=== PATIENT | female | born 1960 | race African-American/Black ===

== ENCOUNTER 2022-02-21 17:07 | Emergency (ER) | payer BC ==
[2022-02-21] MEDS ORDERED: METOCLOPRAMIDE 10 MG/2mL INJ ONE (18:15)
[2022-02-21] MEDS ORDERED: DIPHENHYDRAMINE 50 MG/ML VIAL ONE (18:15)
[2022-02-21] MEDS ORDERED: KETOROLAC 30 MG/ML INJ ONE (18:16)
[2022-02-21] MEDS ORDERED: NA CHLORIDE 0.9% 1,000 ML ONE (18:16)
[2022-02-21 19:53] LABS: SARS-COV-2 RT PCR NEGATIVE (NEGATIVE)
--- NOTE | 2022-02-21 21:00 | ER ---
Nurse's Notes [facility] Name: Ann Pruitt Age: 61 yrs Sex: Female : 1960 Arrival Date: 02/21/2022 Time: 17:08 Bed 23 Private MD: Diagnosis: Acute pharyngitis, unspecified Presentation: 02/21 17:40 Chief complaint: Patient states: she has been having body aches, head ache, chills, ap3 sore throat and just "not feeling right" since last night. Patient reports having fever off and on since then, and states the headache is "awful". Coronavirus screen: chills, congestion, cough unrelated to allergies, fatigue, fever, headache, Client presents with at least one sign or symptom that may indicate coronavirus-19. Ebola Screen: No symptoms or risks identified at this time. Initial Sepsis Screen: Does the patient meet any 2 criteria? No. Patient's initial sepsis screen is negative. Does the patient have a suspected source of infection? No. Patient's initial sepsis screen is negative. Risk Assessment: Do you want to hurt yourself or someone else? Patient reports no desire to harm self or others. Onset of symptoms was February 20, 2022. 17:40 Method Of Arrival: Wheelchair ap3 17:40 Acuity: FREDDY 3 ap3 Triage Assessment: 17:43 General: Appears uncomfortable, Behavior is anxious, crying. Pain: Complains of pain in ap3 head, and generalized body aches with jay lower leg pain Pain currently is 7 out of 10 on a pain scale. at worst was 10 out of 10 on a pain scale. Neuro: Level of Consciousness is awake, alert, obeys commands, Oriented to person, place, time, situation, Appropriate for age. Cardiovascular: Patient's skin is warm and dry. Respiratory: Airway is patent Respiratory effort is even, unlabored, Respiratory pattern is regular, symmetrical. Historical: - Allergies: 17:42 No Known Allergies; ap3 - Home Meds: 17:42 None [Active]; ap3 - PMHx: 17:42 Rheumatoid arthritis; disk disease; ap3 - Immunization history:: Client reports receiving the 2nd dose of the Covid vaccine, Flu vaccine is not up to date. - Social history:: Smoking status: Patient reports the use of cigarette tobacco products, denies chronic smoking, but will smoke occasionally. Screenin:44 Abuse screen: Denies threats or abuse. Nutritional screening: No deficits noted. ap3 Tuberculosis screening: No symptoms or risk factors identified. 18:06 Fall Risk No fall in past 12 months (0 pts). No secondary diagnosis (0 pts). IV access vg1 (20 points). Ambulatory Aid- None/Bed Rest/Nurse Assist (0 pts). Gait- Normal/Bed Rest/Wheelchair (0 pts) Mental Status- Oriented to own ability (0 pts). Total Prieto Fall Scale indicates No Risk (0-24 pts). Assessment: 17:50 General: Appears in no apparent distress. uncomfortable, Behavior is calm, cooperative. vg1 Pain: Complains of pain in generalize body Pain currently is 7 out of 10 on a pain scale. Pain began 1 day ago. Neuro: Level of Consciousness is awake, alert, obeys commands, Oriented to person, place, time, situation, Reports headache. Cardiovascular: Patient's skin is warm and dry. Respiratory: Airway is patent Respiratory effort is even, unlabored, Breath sounds are clear bilaterally. GI: No signs and/or symptoms were reported involving the gastrointestinal system. : No signs and/or symptoms were reported regarding the genitourinary system. EENT: No signs and/or symptoms were reported regarding the EENT system. Derm: Skin is intact, is healthy with good turgor. Musculoskeletal: Circulation, motion, and sensation intact. 19:41 Reassessment: Patient appears in no apparent distress at this time. Patient and/or jb4 family updated on plan of care and expected duration. Pain level reassessed. Patient is alert, oriented x 3, equal unlabored respirations, skin warm/dry/pink. 21:14 Reassessment: Patient appears in no apparent distress at this time. Patient and/or jb4 family updated on plan of care and expected duration. Pain level reassessed. Patient is alert, oriented x 3, equal unlabored respirations, skin warm/dry/pink. Vital Signs: 17:40 BP 132 / 77; Pulse 100; Resp 19; Temp 99.1; Pulse Ox 97% ; Weight 70.31 kg; Height 5 ap3 ft. 6 in. (167.64 cm); Pain 7/10; 18:06 BP 136 / 84; Pulse 97; Resp 20; Pulse Ox 98% on R/A; vg1 18:33 BP 118 / 77; Pulse 92; Resp 16; Pulse Ox 100% ; vg1 20:16 BP 154 / 87; Pulse 109; Resp 16; Temp 98.9(TE); Pulse Ox 100% on R/A; jb4 17:40 Body Mass Index 25.02 (70.31 kg, 167.64 cm) ap3 ED Course: 17:08 Patient arrived in ED. as 17:42 Triage completed. ap3 17:44 Arm band placed on right wrist. ap3 17:45 Loretta Ellis, RN is Primary Nurse. vg1 17:46 Fredis Schrader, RIGO is PHCP. pm1 17:46 Arleen Bruno MD is Attending Physician. pm1 18:07 Patient has correct armband on for positive identification. Bed in low position. Call vg1 light in reach. Side rails up X 1. Adult w/ patient. 18:20 Inserted saline lock: 20 gauge in right antecubital area, using aseptic technique. vg1 18:27 COVID swab sent to lab. Flu and/or RSV swab sent to lab. Strep swab sent to lab. vg1 19:03 Report given to Kurt BUITRAGO. vg1 21:14 No provider procedures requiring assistance completed. IV discontinued, intact, jb4 bleeding controlled, No redness/swelling at site. Pressure dressing applied. Administered Medications: 18:20 Drug: NS 0.9% 1000 ml Route: IV; Rate: 1000 ml; Site: right antecubital; vg1 19:30 Follow up: Response: No adverse reaction; IV Status: Completed infusion; IV Intake: jb4 1000ml 18:20 Drug: Ketorolac 30 mg Route: IVP; Site: right antecubital; vg1 19:00 Follow up: Response: No adverse reaction; Marked relief of symptoms; Pain is decreased jb4 18:23 Drug: Benadryl (diphenhydrAMINE) 12.5 mg Route: IVP; Site: right antecubital; vg1 19:00 Follow up: Response: No adverse reaction jb4 18:25 Drug: Reglan (metoCLOPramide) 10 mg Route: IVP; Site: right antecubital; vg1 19:00 Follow up: Response: No adverse reaction; Marked relief of symptoms jb4 Intake: 19:30 IV: 1000ml; Total: 1000ml. jb4 Outcome: 21:00 Discharge ordered by MD. pm1 21:14 Discharged to home ambulatory, with family. jb4 21:14 Condition: stable 21:14 Discharge instructions given to patient, Instructed on discharge instructions, follow up and referral plans. medication usage, Demonstrated understanding of instructions, follow-up care, medications, Prescriptions given X 1. 21:16 Patient left the ED. jb4 Signatures: Karen Amin Patrick, RIGO ENVIRONMENTAL JOURNALIST pm1 Kamaljit Bucio, RN RN jb4 Rachel Smith RN RN ap3 Loretta Ellis, RN RN vg1
--- NOTE | 2022-02-21 21:00 | EDPHYS ---
Physician Documentation [facility] Name: Ann Pruitt Age: 61 yrs Sex: Female : 1960 Arrival Date: 02/21/2022 Time: 17:08 Bed 23 Private MD: ED Physician Arleen Bruno HPI: 02/21 18:06 This 61 yrs old Black Female presents to ER via Wheelchair with complaints of Leg Pain, pm1 Congestion, Headache. 18:06 The patient presents with sore throat, Onset yesterday with headache and nasal pm1 congestion, body aches and leg pain bilaterally. Severity of symptoms: in the emergency department the symptoms are actually worse. Modifying factors: The symptoms are alleviated by nothing, the symptoms are aggravated by nothing, The patient has had contact with sick Grandchildren. Associated signs and symptoms: Pertinent positives: flu-like symptoms, Hoarse voice, Pertinent negatives chest pain, cough, diarrhea, nausea, shortness of breath, vomiting. The patient has not recently seen a physician. Historical: - Allergies: 17:42 No Known Allergies; ap3 - Home Meds: 17:42 None [Active]; ap3 - PMHx: 17:42 Rheumatoid arthritis; disk disease; ap3 - Immunization history:: Client reports receiving the 2nd dose of the Covid vaccine, Flu vaccine is not up to date. - Social history:: Smoking status: Patient reports the use of cigarette tobacco products, denies chronic smoking, but will smoke occasionally. ROS: 18:06 Cardiovascular: Negative for chest pain, palpitations, and edema, Respiratory: Negative pm1 for shortness of breath, cough, wheezing, and pleuritic chest pain, Abdomen/GI: Negative for abdominal pain, nausea, vomiting, diarrhea, and constipation, Back: Negative for injury and pain, MS/Extremity: Negative for injury and deformity, Skin: Negative for injury, rash, and discoloration, Neuro: Negative for headache, weakness, numbness, tingling, and seizure. 18:06 Constitutional: Positive for body aches, Negative for chills, poor PO intake. 18:06 ENT: Positive for sore throat, Negative for ear pain. 18:06 All other systems are negative. Exam: 18:06 Constitutional: This is a well developed, well nourished patient who is awake, alert, pm1 and in no acute distress. Head/Face: Normocephalic, atraumatic. 18:06 Back: No spinal tenderness. No costovertebral tenderness. Full range of motion. Skin: Warm, dry with normal turgor. Normal color with no rashes, no lesions, and no evidence of cellulitis. MS/ Extremity: Pulses equal, no cyanosis. Neurovascular intact. Full, normal range of motion. 18:06 Eyes: Exam is negative for acute changes, Periorbital structures: appear normal, Pupils: no acute changes, Conjunctiva: no acute changes, no injection. 18:06 ENT: External ear(s): are unremarkable, Ear canal(s): are normal, TM's: are normal, Mouth: Lips: normal, moist, Oral mucosa: normal, pink and intact, moist, Posterior pharynx: no acute changes, Airway: no evidence of obstruction, Tonsils: bilaterally enlarged, with erythema, no exudate, no ulcerations, erythema, that is moderate. 18:06 Cardiovascular: Exam negative for acute changes, Rate: normal, Rhythm: regular, Pulses: no pulse deficits are appreciated. 18:06 Respiratory: Exam negative for acute changes, respiratory distress, shortness of breath. 18:06 Neuro: Exam negative for acute changes, Orientation: is normal, Mentation: is normal, Motor: is normal, moves all fours. Vital Signs: 17:40 BP 132 / 77; Pulse 100; Resp 19; Temp 99.1; Pulse Ox 97% ; Weight 70.31 kg; Height 5 ap3 ft. 6 in. (167.64 cm); Pain 7/10; 18:06 BP 136 / 84; Pulse 97; Resp 20; Pulse Ox 98% on R/A; vg1 18:33 BP 118 / 77; Pulse 92; Resp 16; Pulse Ox 100% ; vg1 20:16 BP 154 / 87; Pulse 109; Resp 16; Temp 98.9(TE); Pulse Ox 100% on R/A; jb4 17:40 Body Mass Index 25.02 (70.31 kg, 167.64 cm) ap3 MDM: 17:52 Patient medically screened. pm1 20:57 Data reviewed: vital signs. Data interpreted: Pulse oximetry: on room air is 100 %. pm1 Interpretation: normal. Counseling: I had a detailed discussion with the patient and/or guardian regarding: the historical points, exam findings, and any diagnostic results supporting the discharge/admit diagnosis, the need for outpatient follow up, a family practitioner, to return to the emergency department if symptoms worsen or persist or if there are any questions or concerns that arise at home. 02/21 18:06 Order name: COVID-19/FLU A+B (Document "Date of Onset" if Symptomatic); Complete Time: pm1 20:10 02/21 18:06 Order name: Strep; Complete Time: 19:41 pm1 02/21 19:56 Order name: Throat Culture EDMS 02/21 18:06 Order name: IV Saline Lock; Complete Time: 18:31 pm1 Administered Medications: 18:20 Drug: NS 0.9% 1000 ml Route: IV; Rate: 1000 ml; Site: right antecubital; vg1 19:30 Follow up: Response: No adverse reaction; IV Status: Completed infusion; IV Intake: jb4 1000ml 18:20 Drug: Ketorolac 30 mg Route: IVP; Site: right antecubital; vg1 19:00 Follow up: Response: No adverse reaction; Marked relief of symptoms; Pain is decreased jb4 18:23 Drug: Benadryl (diphenhydrAMINE) 12.5 mg Route: IVP; Site: right antecubital; vg1 19:00 Follow up: Response: No adverse reaction jb4 18:25 Drug: Reglan (metoCLOPramide) 10 mg Route: IVP; Site: right antecubital; vg1 19:00 Follow up: Response: No adverse reaction; Marked relief of symptoms jb4 Disposition Summary: 02/21/22 21:00 Discharge Ordered Location: Home pm1 Problem: new pm1 Symptoms: have improved pm1 Condition: Stable pm1 Diagnosis - Acute pharyngitis, unspecified pm1 Followup: pm1 - With: Emergency Department - When: As needed - Reason: Worsening of condition Followup: pm1 - With: Private Physician - When: 2 - 3 days - Reason: Recheck today's complaints, Continuance of care, Re-evaluation by your physician Discharge Instructions: - Discharge Summary Sheet pm1 - Pharyngitis pm1 - Sore Throat pm1 Forms: - Medication Reconciliation Form pm1 - Thank You Letter pm1 - Antibiotic Education pm1 - Prescription Opioid Use pm1 Prescriptions: - Bromfed DM 2-30-10 mg/5 mL Oral syrup - take 10 milliliter by ORAL route every 4 hours As needed; 240 milliliter; pm1 Refills: 0, Product Selection Permitted Signatures: Dispatcher [employer] Fredis Valdez, SOCIAL WORK CASE MANAGER SOCIAL WORK CASE MANAGER pm1 aRchel Smith RN RN ap3 Loretta Ellis RN RN vg1 Kamaljit Bucio RN jb4 Corrections: (The following items were deleted from the chart) 02/22 02:47 02/21 18:06 Associated signs and symptoms: Pertinent positives: flu-like symptoms, pm1 Pertinent negatives chest pain, cough, diarrhea, nausea, shortness of breath, vomiting, pm1
[2022-02-22 12:48] VITALS: O2SAT 100
[2022-02-22 12:50] VITALS: BP 154/87; TEMP 98.9
== END 2022-02-21 21:16 | disposition home or self-care (01) ==
LOC: ER 17:07
DX: J02.9 Acute pharyngitis, unspecified (principal); R51.9 Headache, unspecified; M79.605 Pain in left leg; M79.604 Pain in right leg; Z20.822 Contact with and (suspected) exposure to COVID-19; F17.210 Nicotine dependence, cigarettes, uncomplicated
CPT/HCPCS: 96361; 87070; 87081; 0240U; 96375; 96374; 99284; J2765; J1200; J7030

== ENCOUNTER 2022-03-09 19:24 | Emergency (ER) | payer BC ==
[2022-03-09 20:09] LABS: Urine Blood 2+ (Negative); Urine Glucose Negative (Negative); Urine Protein Trace (Negative); Urine Specific Gravity 1.015 (1.005-1.030)
[2022-03-09 20:16] LABS: Absolute Lymphocytes (CBC) 2.5 K/uL (0.7-4.9); Hematocrit 42.1 % (36.0-45.0); Lymphocytes % 30.9 % (15.3-44.8); MPV 7.5 fL (7.6-11.3)
[2022-03-09] MEDS ORDERED: NA CHLORIDE 0.9% 1,000 ML ONE (20:17)
[2022-03-09] MEDS ORDERED: ONDANSETRON 4 MG/2 ML VIAL ONE (20:17)
[2022-03-09 20:28] LABS: BUN Blood Urea Nitrogen 12 mg/dL (7-18); Bicarbonate 27 mmol/L (21-32); Glucose Level 111 mg/dL (74-106); Potassium 3.4 mmol/L (3.5-5.1); Sodium Level 140 mmol/L (136-145)
[2022-03-09 20:51] LABS: SARS-COV-2 RT PCR NEGATIVE (NEGATIVE)
[2022-03-09 20:53] LABS: Urine Bacteria 20-50 /HPF (<20); Urine Mucus 1+ /HPF (NONE SEEN)
--- NOTE | 2022-03-09 21:11 | RAD REPORT ---
EXAM DESCRIPTION: CT - Head Brain Wo Cont - 03/09/2022 8:47 pm CLINICAL HISTORY: Hearing loss with nausea and vomiting COMPARISON: None TECHNIQUE: Computed axial tomography of the head was obtained. IV contrast was not requested. All CT scans are performed using dose optimization technique as appropriate and may include automated exposure control or mA/KV adjustment according to patient size. FINDINGS: An intracranial bleed is not seen . The ventricles are normal in caliber. No extra-axial fluid collection is noted. No significant hypodense areas within the brain. Marked opacification left mastoids. Opacification left middle ear. Mild to moderate opacification right mastoids Mucus retention cyst left maxillary sinus IMPRESSION: No acute intracranial abnormality is seen. Marked opacification left mastoids probably mastoiditis. Opacification left middle ear may indicate a n otitis media
--- NOTE | 2022-03-09 21:29 | ER ---
Nurse's Notes [facility] Name: Ann Pruitt Age: 62 yrs Sex: Female : 1960 Arrival Date: 03/09/2022 Time: 19:28 Bed 18 Private MD: Diagnosis: Acute sinusitis, unspecified;Otitis media, unspecified, left ear;UTI/ Urinary tract infection, site not specified Presentation: 03/09 19:36 Chief complaint: Patient states: "it feels like im under water and cant hear for the ab2 past 2 weeks." Pt c/o n/v since this morning. Pt denies abdominal pain. Pt c/o weakness. Coronavirus screen: Vaccine status: Patient reports receiving the 2nd dose of the covid vaccine. Client denies travel out of the [place] in the last 14 days. At this time, the client does not indicate any symptoms associated with coronavirus-19. Ebola Screen: Patient negative for fever greater than or equal to 101.5 degrees Fahrenheit, and additional compatible Ebola Virus Disease symptoms Patient denies exposure to infectious person. Patient denies travel to an Ebola-affected area in the 21 days before illness onset. No symptoms or risks identified at this time. Initial Sepsis Screen: Does the patient meet any 2 criteria? No. Patient's initial sepsis screen is negative. Does the patient have a suspected source of infection? No. Patient's initial sepsis screen is negative. Risk Assessment: Do you want to hurt yourself or someone else? Patient reports no desire to harm self or others. Onset of symptoms is unknown. 19:36 Method Of Arrival: Wheelchair ab2 19:36 Acuity: FREDDY 3 ab2 Triage Assessment: 19:38 General: Appears in no apparent distress. comfortable, Behavior is calm, cooperative, ab2 appropriate for age. Pain: Denies pain. EENT: Reports decreased hearing. Neuro: Level of Consciousness is awake, alert, obeys commands, Oriented to person, place, time, situation, Appropriate for age Reports weakness. Respiratory: Airway is patent Respiratory effort is even, unlabored, Respiratory pattern is regular, symmetrical. GI: Reports intolerance of fluids, intolerance of food, nausea, vomiting. Derm: Skin is intact, is healthy with good turgor, Skin is pink, warm \\T\\ dry. Historical: - Allergies: 19:38 No Known Allergies; ab2 - PMHx: 19:38 disk disease; Rheumatoid Arthritis; ab2 - Immunization history:: Adult Immunizations up to date. - Social history:: Smoking status: Patient reports the use of cigarette tobacco products, smokes one-half pack cigarettes per day. - Family history:: not pertinent. - Hospitalizations: : No recent hospitalization is reported. Vital Signs: 19:36 BP 150 / 98; Pulse 102; Resp 17; Temp 98.1; Pulse Ox 100% on R/A; Weight 72.57 kg; ab2 Height 5 ft. 6 in. (167.64 cm); Pain 0/10; 19:36 Body Mass Index 25.82 (72.57 kg, 167.64 cm) ab2 ED Course: 19:28 Patient arrived in ED. ja2 19:34 Frantz Westbrook MD is Attending Physician. rn 19:38 Triage completed. ab2 19:38 Arm band placed on right wrist. ab2 19:40 Sury Nixon, IFTIKHAR is Primary Nurse. kd3 19:55 Inserted saline lock: 20 gauge in right antecubital area, using aseptic technique. kd3 20:11 CBC with Diff Sent. kd3 20:11 Urine Microscopic Only Sent. kd3 20:11 COVID-19/FLU A+B (Document "Date of Onset" if Symptomatic) Sent. kd3 20:11 Basic Metabolic Panel Sent. kd3 20:48 CT Head Brain wo Cont In Process Unspecified. EDMS Administered Medications: 20:19 Drug: NS 0.9% 1000 ml Route: IV; Rate: 1000 ml; Site: right antecubital; kd3 21:53 Follow up: Response: No adverse reaction; IV Status: Completed infusion kd3 20:19 Drug: Zofran (Ondansetron) 4 mg Route: IVP; Site: right antecubital; kd3 21:53 Follow up: Response: No adverse reaction kd3 21:36 Drug: Augmentin (Amoxicillin-Clavulanate) 875 mg Route: PO; kd3 21:53 Follow up: Response: No adverse reaction kd3 21:52 Not Given (mistakenly discharged without medication. md notified ): Cipro kd3 (ciprofloxacin) 500 mg PO once Outcome: 21:29 Discharge ordered by . rn 21:53 Patient left the ED. kd3 Addendum: 03/14/2022 08:10 Addendum: Culture Results: Positive urine culture. No further action required. Bacteria a a5 sensitive to prescribed antibiotic. Signatures: Dispatcher [employer] EDMS Frantz Westbrook MD MD rn Calderon, Audri RN RN aa5 Annika Ledbetter Kyli, RN RN kd3 Portillo Goncalves
--- NOTE | 2022-03-09 21:30 | EDPHYS ---
Physician Documentation [facility] Name: Ann Pruitt Age: 62 yrs Sex: Female : 1960 Arrival Date: 03/09/2022 Time: 19:28 Bed 18 Private MD: ED Physician Frantz Westbrook HPI: 03/09 21:03 This 62 yrs old Black Female presents to ER via Wheelchair with complaints of vomiting. rn 21:03 The patient presents to the emergency department with nausea, vomiting. rn 21:03 Onset: The symptoms/episode began/occurred this morning. Possible causes: unknown. The rn symptoms are aggravated by nothing. The symptoms are alleviated by nothing. Associated signs and symptoms: Pertinent positives: nausea, vomiting, Pertinent negatives: abdominal pain, constipation, diarrhea, dysuria, fever, flatulence, GI bleeding, hematuria. Severity of symptoms: At their worst the symptoms were mild in the emergency department the symptoms have improved. The patient has not experienced similar symptoms in the past. The patient has been recently seen by a physician:. Pt reports here for nausea/vomiting since this morning. Denies fever/abd pain/urinary symptoms. No sick contacts. NO chest pain/sob. Reports seen here recently for URI and ear problem, prescribed drops and since then (2 weeks) having muted hearing out of both ears and feels like is underwater when hearing. No vision changes. No headache. NO focal neuro complaint. Pt reports took anti-inflammatory medication and unisom on empty stomach and thinks upset her stomach. Reports threw up a few times, no blood in emesis or stool. . Historical: - Allergies: 19:38 No Known Allergies; ab2 - PMHx: 19:38 disk disease; Rheumatoid Arthritis; ab2 - Immunization history:: Adult Immunizations up to date. - Social history:: Smoking status: Patient reports the use of cigarette tobacco products, smokes one-half pack cigarettes per day. - Family history:: not pertinent. - Hospitalizations: : No recent hospitalization is reported. ROS: 21:03 Constitutional: Negative for fever, chills, and weight loss, Eyes: Negative for injury, rn pain, redness, and discharge, ENT: + muted hearing Neck: Negative for injury, pain, and swelling, Cardiovascular: Negative for chest pain, palpitations, and edema, Respiratory: Negative for shortness of breath, cough, wheezing, and pleuritic chest pain, Abdomen/GI: Negative for abd pain, + nausea/vomiting MS/Extremity: Negative for injury and deformity, Skin: Negative for injury, rash, and discoloration, Neuro: Negative for headache, weakness, numbness, tingling, and seizure. Exam: 21:03 Constitutional: This is a well developed, well nourished patient who is awake, alert, rn and in no acute distress. Head/Face: Normocephalic, atraumatic. Eyes: Pupils equal round and reactive to light, extra-ocular motions intact. Periorbital areas with no swelling, redness, or edema. Neck: Trachea midline, no thyromegaly or masses palpated, and no cervical lymphadenopathy. Supple, full range of motion without nuchal rigidity, or vertebral point tenderness. No Meningismus. Cardiovascular: Tachcyardic, regular. No pulse deficits. Respiratory: No increased work of breathing, no retractions or nasal flaring. Abdomen/GI: Soft, non-tender Skin: Warm, dry MS/ Extremity: Pulses equal, no cyanosis. Neuro: Awake and alert, GCS 15, oriented to person, place, time, and situation. Cranial nerves II-XII grossly intact. Motor strength 5/5 in all extremities. Sensory grossly intact. Cerebellar exam normal. Vital Signs: 19:36 BP 150 / 98; Pulse 102; Resp 17; Temp 98.1; Pulse Ox 100% on R/A; Weight 72.57 kg; ab2 Height 5 ft. 6 in. (167.64 cm); Pain 0/10; 19:36 Body Mass Index 25.82 (72.57 kg, 167.64 cm) ab2 MDM: 19:34 Patient medically screened. rn 21:28 Differential diagnosis: otitis media, sinusitis, UTI. Data reviewed: vital signs, rn nurses notes, lab test result(s), radiologic studies, CT scan, and as a result, I will discharge patient. Counseling: I had a detailed discussion with the patient and/or guardian regarding: the historical points, exam findings, and any diagnostic results supporting the discharge/admit diagnosis, lab results, radiology results, the need for outpatient follow up, to return to the emergency department if symptoms worsen or persist or if there are any questions or concerns that arise at home. Response to treatment: the patient's symptoms have mildly improved after treatment, and as a result, I will discharge patient. Special discussion: I discussed with the patient/guardian in detail that at this point there is no indication for admission to the hospital. It is understood, however, that if the symptoms persist or worsen the patient needs to return immediately for re-evaluation. 21:32 Special discussion: Based on the history and exam findings, there is no indication for rn further emergent testing or inpatient evaluation. I discussed with the patient/guardian the need to see the ENT specialist for further evaluation of the symptoms. 03/09 19:43 Order name: COVID-19/FLU A+B (Document "Date of Onset" if Symptomatic); Complete Time: rn :03/09 19:43 Order name: CBC with Diff; Complete Time: : rn 03/09 19:43 Order name: Basic Metabolic Panel; Complete Time: 21: rn 03/09 19:43 Order name: Urine Microscopic Only; Complete Time: 21: rn 03/09 20:10 Order name: Urine Dipstick-Ancillary; Complete Time: 21: EDMS 03/09 20:11 Order name: Urine Dipstick-Ancillary EDMS 03/09 19:43 Order name: CT Head Brain wo Cont; Complete Time: 21:20 rn 03/09 19:43 Order name: IV Start; Complete Time: 19:59 rn 03/09 19:43 Order name: Urine Dipstick-Ancillary (obtain specimen); Complete Time: 20:11 rn 03/09 20:56 Order name: Urine Culture EDMS Administered Medications: 20:19 Drug: NS 0.9% 1000 ml Route: IV; Rate: 1000 ml; Site: right antecubital; kd3 21:53 Follow up: Response: No adverse reaction; IV Status: Completed infusion kd3 20:19 Drug: Zofran (Ondansetron) 4 mg Route: IVP; Site: right antecubital; kd3 21:53 Follow up: Response: No adverse reaction kd3 21:36 Drug: Augmentin (Amoxicillin-Clavulanate) 875 mg Route: PO; kd3 21:53 Follow up: Response: No adverse reaction kd3 21:52 Not Given (mistakenly discharged without medication. notified ): Cipro kd3 (ciprofloxacin) 500 mg PO once Disposition Summary: 03/09/22 21:29 Discharge Ordered Location: Home rn Problem: new rn Symptoms: have improved rn Condition: Stable rn Diagnosis - Acute sinusitis, unspecified rn - Otitis media, unspecified, left ear rn - UTI/ Urinary tract infection, site not specified rn Followup: rn - With: Private Physician - When: As needed - Reason: Recheck today's complaints, Re-evaluation by your physician Discharge Instructions: - Discharge Summary Sheet rn - Otitis Media, Adult rn - Sinusitis, Adult rn - Urinary Tract Infection, Adult rn - Mastoiditis, furniture manager Forms: - Medication Reconciliation Form rn - Thank You Letter rn - Antibiotic vehicle return associate - Prescription Opioid Use rn Prescriptions: - ondansetron 4 mg Oral tablet,disintegrating - take 1 tablet by ORAL route every 4-6 hours As needed; 20 tablet; Refills: 0, jmm Product Selection Permitted - Augmentin 875-125 mg Oral Tablet - take 1 tablet by ORAL route every 12 hours for 10 days; 20 tablet; Refills: 0, rn Product Selection Permitted - Cipro 500 mg Oral Tablet - take 1 tablet by ORAL route every 12 hours for 10 days; 14 tablet; Refills: 0, rn Product Selection Permitted Signatures: Dispatcher [employer] EDFrantz Whelan MD MD rn Doucette, Kyli, RN RN 3 Portillo Goncalves
[2022-03-09] MEDS ORDERED: AMOX/K CLAV 875 MG TAB ONE (21:40)
[2022-03-09 22:02] VITALS: BP 150/98; TEMP 98.1; O2SAT 100
== END 2022-03-09 21:53 | disposition home or self-care (01) ==
LOC: ER 19:24
DX: H66.92 Otitis media, unspecified, left ear (principal); N39.0 Urinary tract infection, site not specified; J01.90 Acute sinusitis, unspecified; F17.210 Nicotine dependence, cigarettes, uncomplicated; Z20.822 Contact with and (suspected) exposure to COVID-19
CPT/HCPCS: 96361; 87088; 85025; 87086; 80048; 36415; 87077; 87186; 0240U; 70450; 96374; 99284; J7030; J2405; 81003; 81015

== ENCOUNTER 2022-11-16 20:27 | Emergency (ER) | payer BC, OTHER ==
--- NOTE | 2022-11-16 20:45 | EDPHYS ---
Physician Documentation [facility] Name: Ann Pruitt Age: 62 yrs Sex: Female : 1960 Arrival Date: 11/16/2022 Time: 20:30 Bed IW1 Private MD: ED Physician Arleen Bruno HPI: 11/16 20:43 This 62 yrs old Black Female presents to ER via Unassigned with complaints of Ear Pain, kb Headache. 20:43 The patient presents with pain. The complaints affect the right ear. Onset: The kb symptoms/episode began/occurred 2 day(s) ago. Modifying factors: The symptoms are alleviated by nothing, the symptoms are aggravated by nothing. Associated signs and symptoms: Pertinent positives: cough. Severity of symptoms: At their worst the symptoms were moderate in the emergency department the symptoms are unchanged. The patient has experienced a previous episode. The patient has not recently seen a physician. Pt c/o right ear pain. States she developed the pain and a cold 2 days ago. Has been taking flonase, otc cold medication and ear drops without relief. . Historical: - Allergies: 20:46 Haldol; ll3 - Home Meds: 20:46 Flonase Nasal [Active]; ll3 - PMHx: 20:46 disk disease; Rheumatoid Arthritis; ll3 - PSHx: 20:46 None; ll3 - Immunization history:: Client reports receiving the 2nd dose of the Covid vaccine. - Social history:: Smoking status: Patient reports the use of cigarette tobacco products, denies chronic smoking, but will smoke occasionally. ROS: 20:42 Constitutional: Negative for fever, chills, and weight loss. kb 20:42 ENT: Positive for ear pain, sinus congestion. 20:42 Respiratory: Positive for cough. 20:42 Neuro: Positive for headache. 20:42 All other systems are negative. Exam: 20:42 Constitutional: This is a well developed, well nourished patient who is awake, alert, kb and in no acute distress. Head/Face: Normocephalic, atraumatic. Cardiovascular: Regular rate and rhythm with a normal S1 and S2. No gallops, murmurs, or rubs. No pulse deficits. Respiratory: Respirations even and unlabored. No increased work of breathing. Talking in full sentences Abdomen/GI: Soft, non-tender. No distention Skin: Warm, dry with normal turgor. Normal color. MS/ Extremity: Pulses equal, no cyanosis. Neurovascular intact. Full, normal range of motion. Neuro: Awake and alert, GCS 15, oriented to person, place, time, and situation. Moves all extremities. Normal gait. Psych: Awake, alert, with orientation to person, place and time. Behavior, mood, and affect are within normal limits. 20:42 ENT: External ear(s): are unremarkable, Ear canal(s): are normal, TM's: bulging, on the right, erythema, that is moderate, on the right, Examination of the other ear shows no obvious abnormality. Vital Signs: 20:42 BP 141 / 94; Pulse 88; Resp 16; Temp 98.8(O); Pulse Ox 97% on R/A; Weight 72.12 kg; ll3 Height 5 ft. 6 in. (167.64 cm) (R); Pain 5/10; 20:42 Body Mass Index 25.66 (72.12 kg, 167.64 cm) ll3 MDM: 20:34 Patient medically screened. kb 20:42 Data reviewed: vital signs, nurses notes. Data interpreted: Pulse oximetry: on room air kb is 98 %. Interpretation: normal. Counseling: I had a detailed discussion with the patient and/or guardian regarding: the historical points, exam findings, and any diagnostic results supporting the discharge/admit diagnosis, the need for outpatient follow up, an ENT specialist, a family practitioner, to return to the emergency department if symptoms worsen or persist or if there are any questions or concerns that arise at home. Administered Medications: 21:03 Drug: Rocephin (cefTRIAXone) 1 grams Route: IM; Site: right gluteus; ll3 21:03 Follow up: Response: Medication administered at discharge. ll3 Disposition Summary: 11/16/22 20:45 Discharge Ordered Location: Home kb Condition: Stable kb Diagnosis - Otitis media, unspecified, right ear kb - Acute upper respiratory infection, unspecified kb Followup: kb - With: Emergency Department - When: As needed - Reason: Worsening of condition Followup: kb - With: Private Physician - When: 2 - 3 days - Reason: Recheck today's complaints, Continuance of care, Re-evaluation by your physician Discharge Instructions: - Discharge Summary Sheet kb - Otitis Media, Adult, [id number] kb - Upper Respiratory Infection, Adult, [id number] kb Forms: - Medication Reconciliation Form kb - Thank You Letter kb - Antibiotic Education kb - Prescription Opioid Use kb Prescriptions: - Augmentin 875-125 mg Oral Tablet - take 1 tablet by ORAL route every 12 hours for 10 days; 20 tablet; Refills: 0, kb Product Selection Permitted Signatures: Gogo Alejandra, MARQUEZ-C STUDENT DEVELOPMENT DEAN-Serena Haskins, RN RN ll3
[2022-11-16] MEDS ORDERED: CEFTRIAXONE 1000 MG/VIAL ONE (20:56)
[2022-11-16] MEDS ORDERED: LIDOCAINE 1% MPF 2 ML AMPULE ONE (20:56)
--- NOTE | 2022-11-16 21:05 | ER ---
Nurse's Notes [facility] Name: Ann Pruitt Age: 62 yrs Sex: Female : 1960 Arrival Date: 11/16/2022 Time: 20:30 Bed IW1 Private MD: Diagnosis: Otitis media, unspecified, right ear;Acute upper respiratory infection, unspecified Presentation: 11/16 20:42 Chief complaint: Patient states: I've had an ear ache for 2 days, c/o right sided ll3 facial pressure/pain, states pain is 5/10. Coronavirus screen: Vaccine status: Patient reports receiving the 2nd dose of the covid vaccine. At this time, the client does not indicate any symptoms associated with coronavirus-19. Ebola Screen: No symptoms or risks identified at this time. Initial Sepsis Screen: Does the patient meet any 2 criteria? No. Patient's initial sepsis screen is negative. Does the patient have a suspected source of infection? No. Patient's initial sepsis screen is negative. Risk Assessment: Do you want to hurt yourself or someone else? Patient reports no desire to harm self or others. Onset of symptoms was November 14, 2022. Care prior to arrival: Medication(s) given: Tylenol, 1000 mg, at 1900. 20:42 Method Of Arrival: Ambulatory ll3 20:42 Acuity: FREDDY 3 ll3 Triage Assessment: 20:46 General: Appears uncomfortable, Behavior is calm, cooperative. Pain: Complains of pain ll3 in right ear and right restoration Pain does not radiate. Pain currently is 5 out of 10 on a pain scale. at worst was 7 out of 10 on a pain scale. Quality of pain is described as pressure, Pain began 2-3 days ago. Is continuous. EENT: Reports decreased hearing in left ear and right ear C/o facial pressure, and ear pain. Neuro: Level of Consciousness is awake, alert, obeys commands, Oriented to person, place, time, situation. Respiratory: Respiratory effort is even, unlabored, Respiratory pattern is regular, symmetrical. Derm: Skin is pink, warm \T\ dry. Historical: - Allergies: 20:46 Haldol; ll3 - Home Meds: 20:46 Flonase Nasal [Active]; ll3 - PMHx: 20:46 disk disease; Rheumatoid Arthritis; ll3 - PSHx: 20:46 None; ll3 - Immunization history:: Client reports receiving the 2nd dose of the Covid vaccine. - Social history:: Smoking status: Patient reports the use of cigarette tobacco products, denies chronic smoking, but will smoke occasionally. Screenin:03 [facility] ED Fall Risk Assessment (Adult) History of falling in the last 3 months, ll3 including since admission No falls in past 3 months (0 pts) Confusion or Disorientation No (0 pts) Intoxicated or Sedated No (0 pts) Impaired Gait No (0 pts) Mobility Assist Device Used No (0 pt) Altered Elimination No (0 pt) Score/Fall Risk Level 0 - 2 = Low Risk Oriented to surroundings, Maintained a safe environment. Abuse screen: Denies threats or abuse. Denies injuries from another. Nutritional screening: No deficits noted. Tuberculosis screening: No symptoms or risk factors identified. Vital Signs: 20:42 BP 141 / 94; Pulse 88; Resp 16; Temp 98.8(O); Pulse Ox 97% on R/A; Weight 72.12 kg; ll3 Height 5 ft. 6 in. (167.64 cm) (R); Pain 5/10; 20:42 Body Mass Index 25.66 (72.12 kg, 167.64 cm) ll3 ED Course: 20:30 Patient arrived in ED. [id number] 20:34 Gogo Alejandra [facility]-C [facility]. kb 20:34 Arleen Bruno MD is Attending Physician. kb 20:46 Triage completed. ll3 20:46 Arm band placed on. ll3 21:03 Patient has correct armband on for positive identification. Adult w/ patient. ll3 21:03 No provider procedures requiring assistance completed. Patient did not have IV access ll3 during this emergency room visit. Administered Medications: 21:03 Drug: Rocephin (cefTRIAXone) 1 grams Route: IM; Site: right gluteus; ll3 21:03 Follow up: Response: Medication administered at discharge. ll3 Medication: 21:04 VIS not applicable for this client. ll3 Outcome: 20:45 Discharge ordered by . kb 21:03 Discharged to home ambulatory, with significant other. ll3 21:03 Condition: stable 21:03 Discharge instructions given to patient, significant other, Instructed on discharge instructions, follow up and referral plans. medication usage, Demonstrated understanding of instructions, follow-up care, medications, Prescriptions given X 1. 21:04 Patient left the ED. ll3 Signatures: Gogo Alejandra FNP-C FNP-Marleni Reinaj6 Serena Watson, RN RN ll3
[2022-11-16 21:25] VITALS: BP 141/94; TEMP 98.8; O2SAT 97
== END 2022-11-16 21:04 | disposition home or self-care (01) ==
LOC: ER 20:27
DX: H66.91 Otitis media, unspecified, right ear (principal); J06.9 Acute upper respiratory infection, unspecified; F17.210 Nicotine dependence, cigarettes, uncomplicated; Z88.5 Allergy status to narcotic agent
CPT/HCPCS: 96372; 99283

== ENCOUNTER 2023-10-16 17:01 | Emergency (ER) | payer OTHER ==
--- NOTE | 2023-10-16 18:41 | RAD REPORT ---
EXAM DESCRIPTION: Mukesh Knight (2 Views)10/16/2023 6:02 pm CLINICAL HISTORY: Cough COMPARISON: None FINDINGS: The lungs appear clear of acute infiltrate. The heart is normal size IMPRESSION: No acute abnormalities displayed
--- NOTE | 2023-10-16 18:47 | EDPHYS ---
Physician Documentation [facility] Name: Ann Porter Age: 63 yrs Sex: Female : 1960 Arrival Date: 10/16/2023 Time: 17:01 Bed 9 Private MD: ED Physician Thierry Huitron HPI: 10/16 18:22 This 63 yrs old Black Female presents to ER via Ambulatory with complaints of Flu kb Symptoms, Shoulder Pain. 18:23 Patient is a 63-year-old female with a history of RA who presents for cough, congestion kb and pain in the left shoulder blade that began yesterday. Denies fever.. Historical: - Allergies: 17:31 Haldol; aa5 - PMHx: 17:31 disk disease; Rheumatoid Arthritis; aa5 - Immunization history:: Adult Immunizations unknown. - Social history:: Smoking status: Patient reports the use of cigarette tobacco products, smokes one-half pack cigarettes per day. ROS: 18:23 Constitutional: Negative for fever, chills, and weight loss, kb 18:23 ENT: Positive for rhinorrhea, sinus congestion, 18:23 Respiratory: Positive for cough, 18:23 Back: Positive for of the left scapular area, 18:23 All other systems are negative, Exam: 18:23 Constitutional: This is a well developed, well nourished patient who is awake, alert, kb and in no acute distress. Head/Face: Normocephalic, atraumatic. ENT: Moist Mucous membranes Cardiovascular: Regular rate Respiratory: Respirations even and unlabored. No increased work of breathing. Talking in full sentences Abdomen/GI: Soft, non-tender. No distention Skin: Warm, dry with normal turgor. Normal color. MS/ Extremity: Pulses equal, no cyanosis. Neurovascular intact. Full, normal range of motion. Neuro: Awake and alert, GCS 15, oriented to person, place, time, and situation. Moves all extremities. Normal gait. Vital Signs: 17:29 BP 159 / 84; Pulse 112; Resp 18 S; Temp 100(TE); Pulse Ox 99% on R/A; aa5 19:05 Weight 68.04 kg; me1 19:10 BP 155 / 93; Pulse 95; Resp 16; Pulse Ox 99% on R/A; me1 MDM: 17:13 Patient medically screened. kb 18:23 Differential Diagnosis: Pneumonia Other URI, flu, COVID. Data reviewed: vital signs, kb nurses notes. 18:45 Counseling: I had a detailed discussion with the patient and/or guardian regarding the kb historical points, exam findings, and any diagnostic results supporting the discharge/admit diagnosis, lab results, radiology results, the need for outpatient follow up, a family practitioner, to return to the emergency department if symptoms worsen or persist or if there are any questions or concerns that arise at home. 10/16 17:31 Order name: Flu; Complete Time: 18:41 iw 10/16 17:31 Order name: SARS-COV-2 RT PCR; Complete Time: 18:24 iw 10/16 17:31 Order name: Chest Pa And Lat (2 Views) XRAY; Complete Time: 18:45 iw 10/16 17:31 Order name: EKG; Complete Time: 17:32 iw 10/16 17:31 Order name: EKG - Nurse/Tech; Complete Time: 17:41 iw Administered Medications: 19:10 Drug: [place] PO 10 mg-325 mg 1 tabs PO once Route: PO; me1 19:31 Follow up: Response: No adverse reaction me1 Disposition Summary: 10/16/23 18:46 Discharge Ordered Notes: Location: Home kb Condition: Stable kb Diagnosis - Influenza due to identified novel influenza A virus - B kb Followup: kb - With: Emergency Department - When: As needed - Reason: Worsening of condition Followup: kb - With: Private Physician - When: 2 - 3 days - Reason: Recheck today's complaints, Continuance of care, Re-evaluation by your physician Discharge Instructions: - Discharge Summary Sheet kb - Influenza, Adult, [id number] kb Forms: - Medication Reconciliation Form kb - Thank You Letter kb - Antibiotic Education kb - Prescription Opioid Use kb - Patient Portal Instructions kb - Leadership Thank You Letter kb Prescriptions: - Tamiflu 75 mg Oral capsule - take 1 tablet ORAL route every 12 hours for 5 days; 10 tablet; Refills: 0, kb Product Selection Permitted Signatures: Dispatcher [employer] Gogo Liang FNP-C FNP-Gloria Wagner RN RN Kae Branch RN RN aa5 Pavithra Castaneda RN RN me1
--- NOTE | 2023-10-16 18:47 | ER ---
Nurse's Notes [facility] Name: Ann Porter Age: 63 yrs Sex: Female : 1960 Arrival Date: 10/16/2023 Time: 17:01 Bed 9 Private MD: Diagnosis: Influenza due to identified novel influenza A virus-B Presentation: 10/16 17:29 Chief complaint: Patient states: cough, congestion, body aches. Pt states "my left aa5 shoulder is really bothering me". Coronavirus screen: congestion, cough unrelated to allergies. Ebola Screen: Patient denies travel to an Ebola-affected area in the 21 days before illness onset. Initial Sepsis Screen: Does the patient meet any 2 criteria? HR > 90 bpm. Does the patient have a suspected source of infection? No. Patient's initial sepsis screen is negative. Risk Assessment: Do you want to hurt yourself or someone else? Patient reports no desire to harm self or others. Onset of symptoms was September 2023. 17:29 Acuity: FREDDY 3 aa5 17:29 Method Of Arrival: Ambulatory aa5 18:43 Chief complaint:. me1 Historical: - Allergies: 17:31 Haldol; aa5 - PMHx: 17:31 disk disease; Rheumatoid Arthritis; aa5 - Immunization history:: Adult Immunizations unknown. - Social history:: Smoking status: Patient reports the use of cigarette tobacco products, smokes one-half pack cigarettes per day. Screenin:[address] [facility] ED Fall Risk Assessment (Adult) History of falling in the last 3 months, me1 including since admission No falls in past 3 months (0 pts) Confusion or Disorientation No (0 pts) Intoxicated or Sedated No (0 pts) Impaired Gait No (0 pts) Mobility Assist Device Used No (0 pt) Altered Elimination No (0 pt) Score/Fall Risk Level 0 - 2 = Low Risk Maintained a safe environment, Provided non-skid footwear, Hourly rounding (assess needs \\T\\ fall precautionary measures) done. Abuse screen: Denies threats or abuse. Nutritional screening: No deficits noted. Tuberculosis screening: No symptoms or risk factors identified. Assessment: 18:44 General: Appears uncomfortable, well groomed, well developed, well nourished, Behavior me1 is. General: Reports cough, congestion, body aches. Pt states "my left shoulder is really bothering me". Pain: Complains of pain in left scapular area Pain does not radiate. Pain at worst was 8 out of 10 on a pain scale. Quality of pain is described as aching, Pain began gradually, Is continuous. Neuro: Level of Consciousness is awake, alert, obeys commands, Oriented to person, place, time, situation, Appropriate for age. Cardiovascular: Capillary refill < 3 seconds Patient's skin is warm and dry. Respiratory: Airway is patent Respiratory effort is even, unlabored, Respiratory pattern is regular, symmetrical. Respiratory: Reports cough that is non-productive. Musculoskeletal: Reports pain in left scapular area. Vital Signs: 17:29 BP 159 / 84; Pulse 112; Resp 18 S; Temp 100(TE); Pulse Ox 99% on R/A; aa5 19:05 Weight 68.04 kg; me1 19:10 BP 155 / 93; Pulse 95; Resp 16; Pulse Ox 99% on R/A; me1 ED Course: 17:05 Patient arrived in ED. mg5 17:13 Gogo Alejandra FNP-C [facility]. kb 17:13 Thierry Huitron MD is Attending Physician. kb 17:29 Arm band placed on. aa5 17:30 Triage completed. aa5 17:42 EKG completed in triage. Results shown to MD. aa5 17:44 EKG done, by ED staff. tm3 18:04 Chest Pa And Lat (2 Views) XRAY In Process Unspecified. EDMS 18:43 Pavithra Castaneda, RN is Primary Nurse. me1 18:44 Patient has correct armband on for positive identification. Bed in low position. Call me1 light in reach. Side rails up X 1. Provided Education on: POC. Verbalized understanding. . 18:44 No provider procedures requiring assistance completed. me1 19:32 Patient did not have IV access during this emergency room visit. me1 Administered Medications: 19:10 Drug: [place] PO 10 mg-325 mg 1 tabs PO once Route: PO; me1 19:31 Follow up: Response: No adverse reaction me1 Medication: 18:44 VIS not applicable for this client. me1 Outcome: 18:46 Discharge ordered by . mulu 19:32 Discharged to home ambulatory, me1 19:32 Condition: stable 19:32 Discharge instructions given to patient, significant other, Instructed on discharge instructions, follow up and referral plans. medication usage, Demonstrated understanding of instructions, follow-up care, medications, Prescriptions given X 1, 19:32 Patient left the ED. me1 Signatures: Dispatcher [employer] EDGogo Ball, CONSERVATION OF RESOURCES COMMISSIONER-C CONSERVATION OF RESOURCES COMMISSIONER-Ckb Gurjit Rodney tm3 Kae Branch RN RN aa5 Pavithra Castaneda RN RN me1 Idalia Cabrera mg5 Corrections: (The following items were deleted from the chart) 18:44 17:29 Chief complaint: Patient states: cough, congestion, body aches. Pt states "my me1 left shoulder is really bothering me" aa5 18:46 18:44 General: Appears uncomfortable, me1 me1
[2023-10-16] MEDS ORDERED: HYDROCODONE/APAP 10/325 TAB ONE (19:20)
[2023-10-16 19:37] VITALS: TEMP 100; O2SAT 99
[2023-10-16 19:38] VITALS: BP 155/93
--- NOTE | 2023-10-18 15:19 | EKG ---
Test Date: 2023-10-16 Test Time: 17:42:19 Floating Derrick Operator: TM MEASUREMENT RESULTS: Intervals: Rate: 95 OK: 174 QRSD: 90 QT: 354 QTc: 444 [place]: P: 71 OK: 174 QRS: 26 T: 55 INTERPRETIVE STATEMENTS: Normal sinus rhythm Possible Left atrial enlargement Low voltage QRS RSR' or QR pattern in V1 suggests right ventricular conduction delay Nonspecific T wave abnormality Abnormal ECG Compared to ECG 10/16/2023 17:40:57 RSR' in V1 or V2 now present T-wave abnormality now present Incomplete right bundle-branch block no longer present Electronically Signed On 10-18-23 15:13:11 BALANCE WHEEL ARM BURNISHER by Andrew Alston
--- NOTE | 2023-10-18 15:20 | EKG ---
Test Date: 2023-10-16 Test Time: 17:40:57 Regrader: TM MEASUREMENT RESULTS: Intervals: Rate: 92 LA: 178 QRSD: 92 QT: 352 QTc: 435 [place]: P: 72 LA: 178 QRS: 24 T: 40 INTERPRETIVE STATEMENTS: Normal sinus rhythm Possible Left atrial enlargement Low voltage QRS Incomplete right bundle branch block Borderline ECG No previous ECG available for comparison Electronically Signed On 10-18-23 15:13:15 PHYSICAL GEOGRAPHER by Andrew Alston
== END 2023-10-16 19:32 | disposition home or self-care (01) ==
LOC: ER 17:01
DX: J10.1 Influenza due to other identified influenza virus with other respiratory manifestations (principal); R05.9 Cough, unspecified; R09.81 Nasal congestion; Z88.8 Allergy status to other drugs, medicaments and biological substances; Z72.0 Tobacco use; Z20.822 Contact with and (suspected) exposure to COVID-19; Z11.52 Encounter for screening for COVID-19
CPT/HCPCS: 71046; 87635; 87804; 93005; 99284

== ENCOUNTER 2023-11-01 11:30 | Emergency (ER) | payer OTHER ==
[2023-11-01] MEDS ORDERED: methocarbamoL 750 MG TAB ONE (12:16)
[2023-11-01] MEDS ORDERED: KETOROLAC 30 MG/ML INJ ONE (12:16)
[2023-11-01] MEDS ORDERED: LIDOCAINE 4% PATCH ONE (12:16)
--- NOTE | 2023-11-01 12:41 | RAD REPORT ---
EXAM DESCRIPTION: CT - Spine Lumbar Wo Con - 11/01/2023 12:16 pm CLINICAL HISTORY: LOWER BACK PAIN COMPARISON: No comparisons TECHNIQUE: Axial noncontrast CT imaging of the lumbar spine was performed with coronal and sagittal re-formatted images. All CT scans are performed using dose optimization technique as appropriate and may include automated exposure control or mA/KV adjustment according to patient size. FINDINGS: No acute lumbar spine fracture seen. No aggressive marrow pattern or malalignment. Paraspinal tissues are normal in thickness. No paraspinal abscess or hematoma seen. Intervertebral disc disease assessment is inherently limited by CT. Within these limitations, no high -grade canal stenosis suspected. [id number] multilevel facet degenerative changes are appreciat ed. No significant bony foraminal stenosis. Nonspecific focal fat stranding along the mesenteric root, just below the level of the renal arteries , incompletely evaluated. Mild colon diverticulosis. IMPRESSION: No acute osseous abnormality of the lumbar spine. Up to moderate facet degenerative dunlap ges as above. Please consider MRI follow-up for assessment of disc disease and involvement of the neural structures , if clinically desired. Nonspecific focal fat stranding along the mesenteric root, just below the level of the renal arteries , incompletely evaluated. This can be idiopathic, or related to a multitude of etiologies, if seen in isolation. Please correlate clinically, and consider additional abdomen/pelvis CT evaluation if ther e is concern for intra-abdominal process. Incidentally noted mild colonic diverticulosis.
--- NOTE | 2023-11-01 13:10 | EDPHYS ---
Physician Documentation [facility] [place] Name: Ann Porter Age: 63 yrs Sex: Female : 1960 Arrival Date: 11/01/2023 Time: 11:30 Bed 12 Private MD: ED Physician Wei Roberts HPI: 11/01 11:48 This 63 yrs old Black Female presents to ER via Ambulatory with complaints of Low Back ec2 Pain. 11:48 Patient arrives today due to concern for left low back pain. Patient reports a history ec2 of sciatica that is right-sided, states this pain is different. Patient reports no falls or injuries or trauma. States that she tried Lidoderm cream without significant improvement in symptoms. Denies any red flag symptoms or paresthesias. Historical: - Allergies: 11:44 Haldol; nj1 - PMHx: 11:44 disk disease; Rheumatoid Arthritis; nj1 - PSHx: 11:44 Ligation of fallopian tube; nj1 - Immunization history:: Client reports receiving the 2nd dose of the Covid vaccine. - Social history:: Smoking status: Patient reports the use of cigarette tobacco products, smokes one-half pack cigarettes per day. ROS: 11:48 Constitutional: as per hpi ec2 Exam: 11:48 Constitutional: GEN: NAD Head: atraumatic Eyes: EOMI Ears: External ears are ec2 normal. CV: regular rate LUNGS: no respiratory distress ABD: non-distended SKIN: no evidence of rashes MSK: no evidence of trauma, light TTP to the left lateral low back, no deformities or crepitus, bilateral lower extremities with good range of motion, no reproducibility of pain with extension. NEURO: moves all extremities equally Vital Signs: 11:41 BP 122 / 85; Pulse 80; Resp 16; Temp 98.1; Pulse Ox 100% ; Weight 74.84 kg; Height 5 nj1 ft. 6 in. ; Pain 5/10; 11:41 Body Mass Index 26.63 (74.84 kg, 167.64 cm) nj1 11:41 Pain Scale: Adult nj1 MDM: 11:48 Data reviewed: vital signs. ED course: Patient arrives today due to concern for left ec2 low back pain. Examination remarkable for well-appearing nontoxic individual who has MSK findings as noted above. Will obtain CT of the L-spine, treat the patient's symptoms with Toradol, Lidoderm patch as well as Robaxin. Currently considering process such as sciatica, DJD, nonspecific back pain. Low suspicion for pyelonephritis, given lack of urinary symptoms. . 11:49 Patient medically screened. ec2 13:06 ED course: CT of the L-spine shows no acute process, does have DJD noted. Patient does ec2 report marked improvement in her symptoms after Robaxin administration. Will have the patient follow-up outpatient, prescribed her muscle relaxers. Patient discharged home, incidental finding did note fat stranding, patient without any abdominal pain. Will defer further workup at this time. . 11/01 11:48 Order name: CT Lumbar Spine Wo Con; Complete Time: 13:06 ec2 Administered Medications: 12:26 Drug: Methocarbamol PO 750 mg PO once Route: PO; bp 13:18 Follow up: Response: No adverse reaction bp 12:26 Drug: Lidoderm Topical Patch 5 % (700 mg/patch) 1 patches Topical once; leave on for 12 bp hours; cover most painful area; may cut into smaller pieces Route: Topical; Site: affected area; 12:26 Drug: Ketorolac IM 30 mg IM once Route: IM; Site: left deltoid; bp 13:18 Follow up: Response: No adverse reaction bp Disposition Summary: 11/01/23 13:09 Discharge Ordered Notes: Location: Home ec2 Condition: Stable ec2 Diagnosis - Low back pain ec2 Followup: ec2 - With: Private Physician - When: - Reason: Recheck today's complaints Discharge Instructions: - Discharge Summary Sheet ec2 - Chronic Back Pain ec2 Forms: - Medication Reconciliation Form ec2 - Thank You Letter ec2 - Antibiotic Education ec2 - Prescription Opioid Use ec2 - Patient Portal Instructions ec2 - Leadership Thank You Letter ec2 Prescriptions: - methocarbamol 500 mg Oral tablet - take 2 tablets ORAL route 4 times per day; 30 tablet; Refills: 0, Product ec2 Selection Permitted Signatures: Dispatcher [employer] Dino Monzon RN RN bp Odalys Shafer RN RN nj1 Wei Roberts MD MD ec2 Corrections: (The following items were deleted from the chart) 13:10 13:06 ED course: CT of the L-spine shows no acute process, does have DJD noted. Will ec2 have the patient follow-up outpatient, prescribed her muscle relaxers. Patient discharged home, incidental finding did note fat stranding, patient without any abdominal pain. Will defer further workup at this time. . ec2
--- NOTE | 2023-11-01 13:10 | ER ---
Nurse's Notes [facility] [place] Name: Ann Porter Age: 63 yrs Sex: Female : 1960 Arrival Date: 11/01/2023 Time: 11:30 Bed 12 Private MD: Diagnosis: Low back pain Presentation: 11/01 11:41 Chief complaint: Patient states: Left low back pain since this morning. Denies dysuria. nj1 Hx degenerative disc disease. Has tried lidocaine cream with no relief. Denies injury. Coronavirus screen: Vaccine status: Patient reports receiving the 2nd dose of the covid vaccine. Ebola Screen: Patient denies travel to an Ebola-affected area in the 21 days before illness onset. Initial Sepsis Screen: Does the patient meet any 2 criteria? No. Patient's initial sepsis screen is negative. Does the patient have a suspected source of infection? No. Patient's initial sepsis screen is negative. Risk Assessment: Do you want to hurt yourself or someone else? Patient reports no desire to harm self or others. Onset of symptoms was November 01, 2023. 11:41 Method Of Arrival: Ambulatory [facility] 11:41 Acuity: FREDDY 3 nj1 Triage Assessment: 13:18 General: Appears in no apparent distress. Behavior is calm, cooperative, appropriate bp for age. Historical: - Allergies: 11:44 Haldol; nj1 - PMHx: 11:44 disk disease; Rheumatoid Arthritis; nj1 - PSHx: 11:44 Ligation of fallopian tube; nj1 - Immunization history:: Client reports receiving the 2nd dose of the Covid vaccine. - Social history:: Smoking status: Patient reports the use of cigarette tobacco products, smokes one-half pack cigarettes per day. Screenin:17 [facility] ED Fall Risk Assessment (Adult) History of falling in the last 3 months, bp including since admission No falls in past 3 months (0 pts). Abuse screen: Denies threats or abuse. Denies injuries from another. Nutritional screening: No deficits noted. Tuberculosis screening: No symptoms or risk factors identified. Assessment: 13:17 Pain: Denies pain. bp Vital Signs: 11:41 BP 122 / 85; Pulse 80; Resp 16; Temp 98.1; Pulse Ox 100% ; Weight 74.84 kg; Height 5 nj1 ft. 6 in. ; Pain 5/10; 11:41 Body Mass Index 26.63 (74.84 kg, 167.64 cm) nj1 11:41 Pain Scale: Adult [facility] ED Course: 11:32 Patient arrived in ED. mg5 11:39 Wei Roberts MD is Attending Physician. ec2 11:44 Triage completed. nj1 11:46 Arm band placed on right wrist. nj1 11:59 Dino Washington, RN is Primary Nurse. bp 12:14 CT Lumbar Spine Wo Con In Process Unspecified. EDMS 13:17 Patient has correct armband on for positive identification. bp 13:17 No provider procedures requiring assistance completed. Patient did not have IV access bp during this emergency room visit. Administered Medications: 12:26 Drug: Methocarbamol PO 750 mg PO once Route: PO; bp 13:18 Follow up: Response: No adverse reaction bp 12:26 Drug: Lidoderm Topical Patch 5 % (700 mg/patch) 1 patches Topical once; leave on for 12 bp hours; cover most painful area; may cut into smaller pieces Route: Topical; Site: affected area; 12:26 Drug: Ketorolac IM 30 mg IM once Route: IM; Site: left deltoid; bp 13:18 Follow up: Response: No adverse reaction bp Medication: 13:17 VIS not applicable for this client. bp Outcome: 13:09 Discharge ordered by . ec2 13:17 Discharged to home via wheelchair, with family, bp 13:17 Condition: stable 13:17 Discharge instructions given to patient, family, Instructed on discharge instructions, follow up and referral plans. medication usage, Demonstrated understanding of instructions, follow-up care, medications, Prescriptions given X 1, 13:18 Patient left the ED. bp Signatures: Dispatcher [employer] EDVT Dino Washington, RN RN bp Odalys Shafer RN RN [address] mg5 Wei Roberts MD MD 2
[2023-11-01 13:37] VITALS: BP 122/85; TEMP 98.1; O2SAT 100
== END 2023-11-01 13:18 | disposition home or self-care (01) ==
LOC: ER 11:30
DX: M54.50 Low back pain, unspecified (principal); F17.210 Nicotine dependence, cigarettes, uncomplicated; Z88.5 Allergy status to narcotic agent
CPT/HCPCS: 72131; 96372; 99284; J2001

== ENCOUNTER 2025-02-24 16:14 | Emergency (ER) | payer OTHER ==
--- NOTE | 2025-02-24 19:02 | RAD REPORT ---
EXAM: C Spine Wo Con HISTORY: Neck pain. Radiculopathy. COMPARISON: None TECHNIQUE: Multiple contiguous axial images were obtained in a CT of the cervical spine without contr ast. Sagittal and coronal reformats were performed. One or more of the following dose reduction techniques were used: Automated exposure control, adjustment of the mA and kV according to patient si ze, and iterative reconstruction. Unless otherwise specified, incidental findings do not require dedicated imaging follow-up. FINDINGS: No fracture or dislocation seen Large bridging osteophyte C4 and C5 results in moderate narrowing of the left aspect of the thecal sa c with compression upon the spinal cord. Right posterior lateral disc osteophyte complex C6-7 results in marked narrowing of the right neural foramina. Large right lateral osteophyte C7-T1 results in marked narrowing right neural foramina. IMPRESSION: Large bridging osteophytes C4 and C5 results in moderate central spinal stenosis Right posterior lateral disc osteophyte complex C6-7 results in marked right foraminal stenosis. Large right lateral osteophyte C7-T1 results in marked right foraminal stenosis Nonemergent MRI cervical spine recommended for further evaluation
[2025-02-24 19:18] LABS: Absolute Eosinophils 0.1 K/uL (0-0.5); Absolute Monocytes 0.3 K/uL (0.1-1.3); Absolute Neutrophil 2.7 K/uL (1.8-8.0); Basophils % 0.6 % (0-1.3); Eosinophils % 1.1 % (0-4.4); Hemoglobin 13.1 g/dL (12.0-15.0); Lymphocytes % 49.8 % (15.3-44.8); MCH 30.6 pg (27.0-35.0); MCHC 33.7 g/dL (32.0-36.0); MCV 90.9 fL (80-100); MPV 7.3 fL (7.6-11.3); Neutrophils % 43.5 % (41.7-73.7); Nucleated Red Blood Cells % 0.1 % (0-0); Platelets 215 thou/uL (152-406); RBC Red Blood Cell Count 4.29 M/uL (3.86-4.86); Red Cell Distribution Width 13.5 % (12.1-15.2)
[2025-02-24] MEDS ORDERED: FENTANYL CITR 100 MCG/2 ML ONE (19:25)
[2025-02-24] MEDS ORDERED: KETOROLAC 30 MG/ML INJ ONE ×2 (19:25→20:16)
[2025-02-24] MEDS ORDERED: dexAMETHasone 10 MG/ML VIAL ONE (19:25)
[2025-02-24] MEDS ORDERED: ONDANSETRON 4 MG/2 ML VIAL ONE (19:25)
[2025-02-24] MEDS ORDERED: DIAZEPAM 5 MG TABLET ONE (19:27)
[2025-02-24] MEDS ORDERED: NA CHLORIDE 0.9% 500 ML ONE (19:27)
[2025-02-24 19:37] LABS: Albumin 3.6 g/dL (3.4-5.0); Albumin/Globulin Ratio 0.9 (1.1-1.8); Anion Gap 8.6 mEq/L (5.0-15.0); Bilirubin Total 0.2 mg/dL (0.2-1.0); Potassium 3.6 mEq/L (3.5-5.1); Protein, Total 7.6 g/dL (6.4-8.2)
--- NOTE | 2025-02-24 19:37 | ER ---
Nurse's Notes [facility] Name: Ann Porter Age: 64 yrs Sex: Female : 1960 Arrival Date: 02/24/2025 Time: 16:14 Bed 15 Private MD: Diagnosis: Cervical disc disorder, unspecified, mid-cervical region-cord compromise;Radiculopathy, cervical region;Spinal stenosis, cervical region;Essential (primary) hypertension Presentation: 02/24 16:49 Chief complaint: Patient states: she woke up this morning with a stiff neck, and neck ap3 pain. patient reports taking muscle relaxers and using icy-hot to no avail with relief. patient currently rates her pain as a 9/10 on the pain scale. Coronavirus screen: At this time, the client does not indicate any symptoms associated with coronavirus-19. Ebola Screen: No symptoms or risks identified at this time. Initial Sepsis Screen: Does the patient meet any 2 criteria? No. Patient's initial sepsis screen is negative. Does the patient have a suspected source of infection? No. Patient's initial sepsis screen is negative. Risk Assessment: Do you want to hurt yourself or someone else? Patient reports no desire to harm self or others. Onset of symptoms was February 24, 2025. 16:49 Method Of Arrival: Ambulatory ap3 16:49 Acuity: FREDDY 3 ap3 Triage Assessment: 16:51 General: Appears uncomfortable, Behavior is calm, cooperative, appropriate for age. ap3 Pain: Complains of pain in right sternocleidomastoid and right side of neck Pain currently is 9 out of 10 on a pain scale. Neuro: Level of Consciousness is awake, alert, obeys commands, Oriented to person, place, time, situation, Appropriate for age. Cardiovascular: Patient's skin is warm and dry. Respiratory: Airway is patent Respiratory effort is even, unlabored, Respiratory pattern is regular, symmetrical. Historical: - Allergies: 16:51 Haldol; ap3 - PMHx: 16:51 disk disease; Rheumatoid Arthritis; ap3 - PSHx: 16:51 Ligation of fallopian tube; ap3 - Immunization history:: Client reports receiving the 2nd dose of the Covid vaccine, Flu vaccine is not up to date. - Infectious Disease History:: Denies. - Social history:: Smoking status: Patient reports the use of cigarette tobacco products, smokes one-half pack cigarettes per day. - Family history:: not pertinent. Screenin:52 Abuse screen: Denies threats or abuse. Nutritional screening: No deficits noted. ap3 Tuberculosis screening: No symptoms or risk factors identified. 19:30 [facility] ED Fall Risk Assessment (Adult) History of falling in the last 3 months, rg5 including since admission No falls in past 3 months (0 pts) Confusion or Disorientation No (0 pts) Intoxicated or Sedated No (0 pts) Impaired Gait No (0 pts) Mobility Assist Device Used No (0 pt) Altered Elimination No (0 pt) Score/Fall Risk Level 0 - 2 = Low Risk Oriented to surroundings, Maintained a safe environment, Provided non-skid footwear. Assessment: 19:30 General: Appears uncomfortable, Behavior is cooperative, appropriate for age. rg5 19:30 Pain: Complains of pain in neck Pain currently is 10 out of 10 on a pain scale. Quality rg5 of pain is described as aching, Pain began 4 hours ago. Neuro: Level of Consciousness is awake, alert, obeys commands, Reports headache. Cardiovascular: Denies chest pain, Patient's skin is warm and dry. Respiratory: Airway is patent Trachea midline Respiratory effort is even, unlabored, Respiratory pattern is regular, symmetrical, Breath sounds are clear. GI: Abdomen is round non-distended, Abd is soft and non tender. : No signs and/or symptoms were reported regarding the genitourinary system. EENT: No deficits noted. Derm: Skin is intact, Skin is dry, Skin is normal. Musculoskeletal: Circulation, motion, and sensation intact. Range of motion: intact in all extremities. 20:30 Reassessment: Patient and/or family updated on plan of care and expected duration. Pain rg5 level reassessed. Patient is alert, oriented x 3, equal unlabored respirations, skin warm/dry/pink. Patient states symptoms have improved. 21:00 Reassessment: Patient and/or family updated on plan of care and expected duration. Pain rg5 level reassessed. Patient is alert, oriented x 3, equal unlabored respirations, skin warm/dry/pink. Patient states feeling better. Vital Signs: 16:49 BP 179 / 110; Pulse 78; Resp 16; Temp 97.8; Pulse Ox 98% ; Weight 74.84 kg; Height 5 ap3 ft. 6 in. ; Pain 9/10; 19:30 BP 158 / 87; Pulse 87; Resp 19; Pulse Ox 97% on R/A; Pain 10/10; rg5 20:15 BP 137 / 85; Pulse 57; Resp 18; Pulse Ox 97% ; Pain 7/10; rg5 21:25 BP 120 / 72; Pulse 67; Resp 17; Pulse Ox 97% on R/A; Pain 2/10; rg5 16:49 Body Mass Index 26.63 (74.84 kg, 167.64 cm) ap3 16:49 Pain Scale: Adult ap3 19:30 Pain Scale: Adult rg5 20:15 Pain Scale: Adult rg5 21:25 Pain Scale: Adult rg5 ED Course: 16:16 Patient arrived in ED. al6 16:34 Thierry Huitron MD is Attending Physician. trinidad 16:51 Triage completed. ap3 16:52 Arm band placed on right wrist. ap3 18:18 CT C Spine In Process Unspecified. EDMS 18:59 Dino Washington, RN is Primary Nurse. bp 19:26 Primary Nurse role handed off by Dino Washington, IFTIKHAR rv1 19:29 Initiated transfer with Bernarda at [facility]. rv1 19:30 Patient has correct armband on for positive identification. Door closed. Noise rg5 minimized. Warm blanket given. 19:30 No provider procedures requiring assistance completed. Inserted saline lock: 22 gauge rg5 in left antecubital area, using aseptic technique. Blood collected. Flushed with 10 mL NS. 19:37 Mauricio Green, IFTIKHAR is Primary Nurse. rg5 19:52 Doc to Doc with Neuro at [facility]. rv1 20:07 Doc to Doc with Hospitalist at [facility]. rv1 20:[address] Shane \T\2011 to [facility] RM 2261. Report # [phone]. rv1 20:50 Awaiting Nurse to Nurse report. rv1 21:04 Called Ashly with EMS for transfer, ETA 15 mins. rv1 21:33 Patient transferred, IV remains in place. intact. rg5 21:34 Provided Education on: needs for transfer. rg5 Administered Medications: 19:37 Drug: NS 0.9% IV 500 ml IV at bolus once; to be given as a bolus over 30 minutes Route: rg5 IV; Rate: bolus; Site: left antecubital; 20:30 Follow up: IV Status: Completed infusion; IV Intake: 500ml rg5 19:37 Drug: Diazepam PO 10 mg PO once Route: PO; rg5 21:28 Follow up: Response: No adverse reaction; Pain is decreased rg5 19:37 Drug: Decadron - Dexamethasone IVP 10 mg IVP once Route: IVP; Site: left antecubital; rg5 21:28 Follow up: Response: No adverse reaction; Pain is decreased rg5 19:37 Drug: fentaNYL (PF) IVP 25 mcg IVP once Route: IVP; Site: left antecubital; rg5 21:27 Follow up: Response: No adverse reaction; Pain is decreased rg5 19:37 Drug: Ondansetron IVP 4 mg IVP once; over 2 minutes Route: IVP; Site: left antecubital; rg5 21:27 Follow up: Response: No adverse reaction rg5 19:38 Drug: Ketorolac IVP 15 mg IVP once Route: IVP; Site: left antecubital; rg5 21:28 Follow up: Response: No adverse reaction; Pain is decreased rg5 20:27 Drug: Norvasc PO 10 mg PO once Route: PO; rg5 21:27 Follow up: Response: No adverse reaction; Blood sugar is lowered rg5 20:27 Drug: Ketorolac IVP 15 mg IVP once Route: IVP; Site: left antecubital; rg5 21:27 Follow up: Response: No adverse reaction; Pain is decreased rg5 Medication: 19:30 VIS not applicable for this client. rg5 Intake: 20:30 IV: 500ml; Total: 500ml. rg5 Outcome: 19:37 ER care complete, transfer ordered by MD. abdi 21:33 Transferred by ground EMS to [facility], rg5 21:33 Condition: stable rg5 21:33 Discharge instructions given to patient, 21:34 Patient left the ED. rg5 Signatures: Dispatcher [employer] EDKS Thierry Huitron MD MD cha Peltier, Brian RN RN bp Rachel Smith RN RN ap3 Brooke Calzada rv1 Mauricio Green, RN RN rg5 Yolie Tyler6 Corrections: (The following items were deleted from the chart) :08 20:56 Initiated transfer with Bernarda at [facility] rv1 rv1
--- NOTE | 2025-02-24 19:37 | EDPHYS ---
Physician Documentation [facility] Name: Ann Porter Age: 64 yrs Sex: Female : 1960 Arrival Date: 02/24/2025 Time: 16:14 Bed 15 Private MD: YAMILET Physician Thierry Huitron HPI: 02/24 19:28 This 64 yrs old Black Female presents to ER via Ambulatory with complaints of Stiff trinidad Neck. 19:28 The patient or guardian complains of decreased range of motion, pain. The symptoms are trinidad located at the C2, C3, C4, C5, C6 and C7. Onset: The symptoms/episode began/occurred 3 day(s) ago. Context: The neck injury/problem resulted from from unknown cause. Associated signs and symptoms: The patient has no apparent associated signs or symptoms. The pain does not radiate. Modifying factors: The symptoms are alleviated by remaining still, the symptoms are aggravated by movement, pressure. Severity of symptoms: At their worst the symptoms were moderate, in the emergency department the symptoms are unchanged. The patient has experienced similar episodes in the past, several times, but today's symptoms are worse. Historical: - Allergies: 16:51 Haldol; ap3 - PMHx: 16:51 disk disease; Rheumatoid Arthritis; ap3 - PSHx: 16:51 Ligation of fallopian tube; ap3 - Immunization history:: Client reports receiving the 2nd dose of the Covid vaccine, Flu vaccine is not up to date. - Infectious Disease History:: Denies. - Social history:: Smoking status: Patient reports the use of cigarette tobacco products, smokes one-half pack cigarettes per day. - Family history:: not pertinent. ROS: 19:28 Constitutional: Negative for fever, chills, and weight loss, Eyes: Negative for injury, trinidad pain, redness, and discharge, ENT: Negative for injury, pain, and discharge, Cardiovascular: Negative for chest pain, palpitations, and edema, Respiratory: Negative for shortness of breath, cough, wheezing, and pleuritic chest pain, Abdomen/GI: Negative for abdominal pain, nausea, vomiting, diarrhea, and constipation, Back: Negative for injury and pain, : Negative for injury, bleeding, discharge, and swelling, MS/Extremity: Negative for injury and deformity, Skin: Negative for injury, rash, and discoloration, Neuro: Negative for headache, weakness, numbness, tingling, and seizure, Psych: Negative for depression, anxiety, suicide ideation, homicidal ideation, and hallucinations, Allergy/Immunology: Negative for hives, rash, and allergies, Endocrine: Negative for neck swelling, polydipsia, polyuria, polyphagia, and marked weight changes, Hematologic/Lymphatic: Negative for swollen nodes, abnormal bleeding, and unusual bruising, 19:28 Neck: Positive for pain with movement, pain at rest, 19:28 Neck: Positive for stiffness, 19:28 Cardiovascular: Negative for chest pain, Exam: 19:32 Constitutional: This is a well developed, well nourished patient who is awake, alert, trinidad and in no acute distress. Head/Face: Normocephalic, atraumatic. Eyes: Pupils equal round and reactive to light, extra-ocular motions intact. Lids and lashes normal. Conjunctiva and sclera are non-icteric and not injected. Cornea within normal limits. Periorbital areas with no swelling, redness, or edema. ENT: Nares patent. No nasal discharge, no septal abnormalities noted. Tympanic membranes are normal and external auditory canals are clear. Oropharynx with no redness, swelling, or masses, exudates, or evidence of obstruction, uvula midline. Mucous membranes moist. Chest/axilla: Normal chest wall appearance and motion. Nontender with no deformity. No lesions are appreciated. Cardiovascular: Regular rate and rhythm with a normal S1 and S2. No gallops, murmurs, or rubs. Normal PMI, no JVD. No pulse deficits. Respiratory: Lungs have equal breath sounds bilaterally, clear to auscultation and percussion. No rales, rhonchi or wheezes noted. No increased work of breathing, no retractions or nasal flaring. Abdomen/GI: Soft, non-tender, with normal bowel sounds. No distension or tympany. No guarding or rebound. No evidence of tenderness throughout. Back: No spinal tenderness. No costovertebral tenderness. Full range of motion. Female : Normal external genitalia. Skin: Warm, dry with normal turgor. Normal color with no rashes, no lesions, and no evidence of cellulitis. MS/ Extremity: Pulses equal, no cyanosis. Neurovascular intact. Full, normal range of motion., bilateral aka Neuro: Awake and alert, GCS 15, oriented to person, place, time, and situation. Cranial nerves II-XII grossly intact. Motor strength 5/5 in all extremities. Sensory grossly intact. Cerebellar exam normal. Normal gait. Psych: Awake, alert, with orientation to person, place and time. Behavior, mood, and affect are within normal limits. 19:32 Neck: External neck: is normal, C-spine: appears grossly normal, no acute changes, ROM/movement: limited range of motion, that is moderate, Vital Signs: 16:49 BP 179 / 110; Pulse 78; Resp 16; Temp 97.8; Pulse Ox 98% ; Weight 74.84 kg; Height 5 ap3 ft. 6 in. ; Pain 9/10; 19:30 BP 158 / 87; Pulse 87; Resp 19; Pulse Ox 97% on R/A; Pain 10/10; rg5 20:15 BP 137 / 85; Pulse 57; Resp 18; Pulse Ox 97% ; Pain 7/10; rg5 21:25 BP 120 / 72; Pulse 67; Resp 17; Pulse Ox 97% on R/A; Pain 2/10; rg5 16:49 Body Mass Index 26.63 (74.84 kg, 167.64 cm) ap3 16:49 Pain Scale: Adult ap3 19:30 Pain Scale: Adult rg5 20:15 Pain Scale: Adult rg5 21:25 Pain Scale: Adult rg5 MDM: 16:35 Medical Screening Exam initiated trinidad 19:33 Differential diagnosis: arthritis, bacterial meningitis, C-Spine Fracture Cervical Disc trinidad Herniation Cervical Discogenic Pain Cervical Facet Syndrome Cervical Raiculopathy Cervical Spondylosis cervical strain, Degenerative Disc Disease Flexion Teardrop Fracture Osteoarthritis Simple Wedge Fracture Spinal Cord Compression Spondylolisthesis subluxation, Thoracic Outlet Syndrome torticollis, Unstable Vertebral Fracture Vertical Compression Injury viral meningitis, Whiplash Injury. Data reviewed: vital signs, nurses notes, lab test result(s), radiologic studies, CT scan. Consideration of Admission/Observation Escalation of care including admission/observation considered. I considered the following discharge prescriptions or medication management in the emergency department Medications were administered in the Emergency Department. See MAR. Independent interpretation of the following test(s) in the Emergency Department CT Scan: My interpretation is ct c spine. Test considered but Not performed: EKG: no ekg. Historians other than the Patient: Spouse/Significant Other: spouse well informed. Care significantly affected by the following chronic conditions: ra, ddd. 02/24 16:36 Order name: CBC with Diff; Complete Time: 19:54 trinidad 02/24 16:36 Order name: Comprehensive Metabolic Panel; Complete Time: 19:54 trinidad 02/24 16:36 Order name: CT C Spine; Complete Time: 19:09 trinidad Administered Medications: 19:37 Drug: NS 0.9% IV 500 ml IV at bolus once; to be given as a bolus over 30 minutes Route: rg5 IV; Rate: bolus; Site: left antecubital; 20:30 Follow up: IV Status: Completed infusion; IV Intake: 500ml rg5 19:37 Drug: Diazepam PO 10 mg PO once Route: PO; rg5 21:28 Follow up: Response: No adverse reaction; Pain is decreased rg5 19:37 Drug: Decadron - Dexamethasone IVP 10 mg IVP once Route: IVP; Site: left antecubital; rg5 21:28 Follow up: Response: No adverse reaction; Pain is decreased rg5 19:37 Drug: fentaNYL (PF) IVP 25 mcg IVP once Route: IVP; Site: left antecubital; rg5 21:27 Follow up: Response: No adverse reaction; Pain is decreased rg5 19:37 Drug: Ondansetron IVP 4 mg IVP once; over 2 minutes Route: IVP; Site: left antecubital; rg5 21:27 Follow up: Response: No adverse reaction rg5 19:38 Drug: Ketorolac IVP 15 mg IVP once Route: IVP; Site: left antecubital; rg5 21:28 Follow up: Response: No adverse reaction; Pain is decreased rg5 20:27 Drug: Norvasc PO 10 mg PO once Route: PO; rg5 21:27 Follow up: Response: No adverse reaction; Blood sugar is lowered rg5 20:27 Drug: Ketorolac IVP 15 mg IVP once Route: IVP; Site: left antecubital; rg5 21:27 Follow up: Response: No adverse reaction; Pain is decreased rg5 Disposition Summary: 02/24/25 19:37 Transfer Ordered Notes: Transfer Location: [facility] trinidad Reason: Higher level of care trinidad Condition: Stable trinidad Problem: an acute exacerbation trinidad Symptoms: have improved trinidad [facility] 21[facility]34[facility] rg5 Diagnosis - Cervical disc disorder, unspecified, mid-cervical region - cord compromise trinidad - Radiculopathy, cervical region trinidad - Spinal stenosis, cervical region trinidad - Essential (primary) hypertension trinidad Forms: - Medication Reconciliation Form trinidad - SBAR form trinidad Signatures: Dispatcher [employer] EDMS Thierry Huitron MD MD cha Prokisch, Amanda, RN RN ap3 Mauricio Green RN RN rg5 Corrections: (The following items were deleted from the chart) 16:37 16:36 CBC+H.LAB.BRZ ordered. EDMS EDMS 16:37 16:36 COMPREHENSIVE METABOLIC PANEL+C.LAB.BRZ ordered. EDMS EDMS 20:12 19:37 [facility] [place] trinidad 21:34 20:12 [facility] [place] rg5
[2025-02-24] MEDS ORDERED: AMLODIPINE 10 MG TAB ONE (20:16)
[2025-02-24 22:29] VITALS: TEMP 97.8
[2025-02-24 22:35] VITALS: O2SAT 97
[2025-02-24 22:38] VITALS: BP 120/72
== END 2025-02-24 21:34 | disposition short-term general hospital (02) ==
LOC: ER 16:14
DX: M54.12 Radiculopathy, cervical region (principal); M48.02 Spinal stenosis, cervical region; I10 Essential (primary) hypertension; F17.210 Nicotine dependence, cigarettes, uncomplicated
CPT/HCPCS: 96361; 85025; 36415; 80053; 72125; 96375; 96374; 99285; J3010; J1100; J2405; J7040